=== PATIENT | male | born 1960 | race Caucasian/White ===

== ENCOUNTER 2017-11-07 08:47 | Observation (INO) | payer SELFPAY ==
[2017-11-07] MEDS ORDERED: Diltiazem 25 MG/5 ML SDV IVPUSH ONE ×2 (08:59→09:39)
[2017-11-07] MEDS ORDERED: Sodium Chloride 0.9% 1,000 ML IV SCH ×2 (09:00→13:37)
--- NOTE | 2017-11-07 09:22 | EDM.PDOC ---
ED HPI GENERAL MEDICAL PROBLEM - General Chief Complaint: Cardiovascular Problem Stated Complaint: IRREGULAR HEARTBEAT Time Seen by Provider: 11/07/17 09:00 Source of Information: Reports: Patient History Limitations: Reports: No Limitations - History of Present Illness INITIAL COMMENTS - FREE TEXT/NARRATIVE: 57-year-old male, otherwise healthy finish his 3 mile run this morning, had some breakfast and then suddenly developed palpitations. No chest pain or shortness of breath, but it was persistent so he came into the clinic to be checked. They found him to be in atrial fibrillation so sent him to the emergency room. He has no history of this in the past, no recent illnesses, he has not had a physical in 7 years but his only persistent medical problem is a small amount of postnasal drip. Onset: Sudden Duration: Hour(s): (Within the last 2 hours) Associated Symptoms: Reports: No Other Symptoms - Related Data Allergies Allergy/AdvReac Type Severity Reaction Status Date / Time No Known Allergies Allergy Verified 11/07/17 08:53 Home Meds: Home Meds Aspirin [Halfprin] 81 mg PO DAILY 11/07/17 [History] Fluticasone Propionate [Flonase] 2 spray INH ASDIRECTED 11/07/17 [History] Past Medical History Musculoskeletal History: Reports: Fracture - Past Surgical History Other Musculoskeletal Surgeries/Procedures:: knee surgery Social & Family History - Tobacco Use Smoking Status *Q: Unknown Ever Smoked - Caffeine Use Caffeine Use: Reports: None - Recreational Drug Use Recreational Drug Use: No ED ROS GENERAL - Review of Systems Review Of Systems: See Below Constitutional: Denies: Fever, Chills HEENT: Reports: Rhinitis Respiratory: Denies: Shortness of Breath Cardiovascular: Reports: Dyspnea on Exertion, Palpitations. Denies: Chest Pain GI/Abdominal: Reports: No Symptoms : Reports: No Symptoms Skin: Reports: No Symptoms Neurological: Denies: Dizziness, Headache Psychiatric: Reports: No Symptoms ED EXAM, GENERAL - Physical Exam Exam: See Below Exam Limited By: No Limitations General Appearance: Alert, No Apparent Distress Head: Atraumatic Respiratory/Chest: No Respiratory Distress, Lungs Clear Cardiovascular: No Murmur, Tachycardia, Irregularly Irregular GI/Abdominal: Soft, Non-Tender Extremities: Normal Inspection. No: Pedal Edema Neurological: Alert, Oriented Psychiatric: Normal Affect, Normal Mood Course - Vital Signs Last Recorded V/S: Last Vital Signs Temp 99.0 F 11/07/17 14:00 Pulse 79 11/07/17 14:00 Resp 15 11/07/17 14:00 BP 123/84 11/07/17 14:00 Pulse Ox 96 11/07/17 14:00 - Orders/Labs/Meds Orders: Active Orders 24 hr Category Date Time Status Diltiazem 125 mg Med 11/07/17 12:00 Active Dextrose 5% in Water 100 ml IV TITRATE EKG 12 Lead [EK] Routine Ther 11/07/17 08:59 Stop Req Medication Orders Acetaminophen (Tylenol) 650 mg PO Q4H PRN PRN Reason: Pain (Mild 1-3)/fever Aspirin (Halfprin) 81 mg PO DAILY GONZALO Fluticasone Propionate (Flonase) 0 gm NASBOTH DAILY GONZALO Diltiazem HCl 125 mg/ Dextrose (/Water) 125 mls @ 5 mls/hr IV TITRATE GONZALO; Protocol Last Admin: 11/07/17 12:10 Dose: 5 mg/hr, 5 mls/hr Sodium Chloride (Normal Saline) 1,000 mls @ 25 mls/hr IV ASDIRECTED GONZALO Ondansetron HCl (Zofran Odt) 4 mg PO Q6H PRN PRN Reason: Nausea able to take PO Labs: Laboratory Tests 11/07/17 11/07/17 Range/Units 08:59 09:06 WBC 8.8 (4.5-11.0) K/uL RBC 5.10 (4.30-5.90) M/uL Hgb 16.1 H (12.0-15.0) g/dL Hct 45.6 (40.0-54.0) % MCV 89 (80-98) fL MCH 32 H (27-31) pg MCHC 35 (32-36) % Plt Count 223 (150-400) K/uL Neut % (Auto) 57 (36-66) % Lymph % (Auto) 31 (24-44) % [place] % (Auto) 9 H (2-6) % Eos % (Auto) 2 (2-4) % Baso % (Auto) 1 (0-1) % Sodium 138 L (140-148) mmol/L Potassium 4.2 (3.6-5.2) mmol/L Chloride 102 (100-108) mmol/L Carbon Dioxide 27 (21-32) mmol/L Anion Gap 13.2 (5.0-14.0) mmol/L BUN 29 H (7-18) mg/dL Creatinine 1.4 H (0.8-1.3) mg/dL Est Cr Clr Drug Dosing 56.32 mL/min Estimated GFR (MDRD) 52 L (>60) Glucose 95 (74-106) mg/dL Calcium 9.5 (8.5-10.1) mg/dL Troponin I < 0.017 (0.000-0.056) ng/mL TSH, Ultra Sensitive 2.170 (0.358-3.740) uIU/mL Meds: Medications Generic Name Dose Route Start Last Admin Trade Name Freq PRN Reason Stop Dose Admin Acetaminophen 650 mg 11/07/17 13:37 Tylenol PO Q4H PRN Pain (Mild 1-3)/fever Aspirin 81 mg 11/08/17 09:00 Halfprin PO DAILY GONZALO Fluticasone Propionate 0 gm 11/08/17 09:00 Flonase NASBOTH DAILY GONZALO Diltiazem HCl 125 mg/ Dextrose 125 mls @ 5 mls/hr 11/07/17 12:00 11/07/17 12: 10 /Water IV 5 mg/hr TITRATE GONZALO 5 mls/hr Administration Protocol 5 MG/HR Sodium Chloride 1,000 mls @ 25 mls/hr 11/07/17 13:37 Normal Saline IV ASDIRECTED GONZALO Ondansetron HCl 4 mg 11/07/17 13:37 Zofran Odt PO Q6H PRN Nausea able to take PO Discontinued Medications Generic Name Dose Route Start Last Admin Trade Name Freq PRN Reason Stop Dose Admin Diltiazem HCl 20 mg 11/07/17 08:59 11/07/17 09:03 Diltiazem IVPUSH 11/07/17 09:00 20 mg ONETIME ONE Administration Diltiazem HCl 25 mg 11/07/17 09:34 11/07/17 09:41 Diltiazem IVPUSH 11/07/17 09:35 Not Given ONETIME ONE Diltiazem HCl 20 mg 11/07/17 09:39 11/07/17 09:41 Diltiazem IVPUSH 11/07/17 09:40 20 mg ONETIME ONE Administration Sodium Chloride 1,000 mls @ 250 mls/hr 11/07/17 09:00 11/07/17 09:03 Normal Saline IV 250 mls/hr ASDIRECTED GONZALO Administration Nicardipine HCl 25 mg/ Sodium 250 mls @ 50 mls/hr 11/07/17 11:00 11/07/17 11: 00 Chloride IV 5 mg/hr TITRATE GONZALO 50 mls/hr Administration Protocol 5 MG/HR Propofol 120 mg 11/07/17 10:01 11/07/17 11:00 Diprivan 20 Ml IVPUSH 11/07/17 10:02 120 mg ONETIME ONE Administration - Re-Assessments/Exams Free Text/Narrative Re-Assessment/Exam: 11/07/17 09:21 EKG was reviewed from clinic and does show atrial fibrillation. Rate was 120- 140 on the nursing manager, all other vitals were normal. Labs are drawn for a BMP, CBC, troponin and TSH. He was given 20 mg of IV Cardizem. 11/07/17 10:43 Patient's rate was controlled extremely well with the Cardizem but he did not convert. A second dose of 20 mg of IV Cardizem was given after 30 minutes, and another monitoring of 30 minutes was done. After consent and discussing risks, patient was cardioverted under propofol sedation twice, both times he converted to sinus rhythm briefly but then reentered into atrial fibrillation. His labs were very reassuring including a normal TSH, negative troponin and normal electrolytes. He did show volume contraction with an elevated hemoglobin, slightly decreased GFR and increased BUN and creatinine so hydration was continued. I discussed his condition with Dr. Alvarado who assisted with the cardioversion, and he'll be admitted for rate control and further evaluation. Departure - Departure Time of Disposition: 13:33 Disposition: Admitted As Inpatient 66 Condition: Fair Clinical Impression: Atrial fibrillation with rapid ventricular response - My Orders Last 24 Hours: My Active Orders 11/07/17 08:59 EKG 12 Lead [EK] Routine 11/07/17 12:00 Diltiazem 125 mg Dextrose 5% in Water 100 ml IV TITRATE - Assessment/Plan Last 24 Hours: My Active Orders 11/07/17 08:59 EKG 12 Lead [EK] Routine 11/07/17 12:00 Diltiazem 125 mg Dextrose 5% in Water 100 ml IV TITRATE
[2017-11-07] MEDS: Diltiazem 25 MG/5 ML SDV IVPUSH ONE ×2 (09:40→09:41)
[2017-11-07] MEDS ORDERED: Propofol 200 MG/20 ML SDV IVPUSH ONE (10:01)
[2017-11-07] MEDS ORDERED: niCARdipine HCl 25 MG in Sodium Chloride 0.9% 240 ML IV SCH (11:00)
--- NOTE | 2017-11-07 12:10 | PCM.PRNOTE ---
- Free Text/Narrative Note: Date of service: 11/07/2017 Proposed procedure: synchronized cardioversion Preprocedure diagnosis: paroxysmal atrial fibrillation with rapid ventricular response Post procedure diagnosis: paroxysmal atrial fibrillation with rapid ventricular response Indication for procedure: Brant was evaluated today for management atrial fibrillation/atrial flutter with symptoms and/or rapid ventricular response. Synchronized cardioversion was recommended as a primary treatment. Description of the procedure: Brant is currently located in [place] [id number]. We have reviewed the potential risks of electrical cardioversion including but not limited to: Superficial skin torres, ineffective treatment, other arrhythmias, reaction to anesthesia medications or potentially asystole. The benefits of the procedure have also been reviewed. At this time the patient wishes to proceed with electrical cardioversion. All necessary pre-procedure information and paperwork has been provided and completed, respectively. The patient was connected to cardioversion pads and monitoring equipment per protocol. Prior to the procedure, a timeout was held with nursing and anesthesia present to confirm the right patient and right procedure. Once appropriate anesthesia was applied the machine was charged to 200 Joules and a synchronized electrical shock was applied. The patient was successfully converted to normal sinus rhythm based on telemetry monitoring but unfortunately remained here for only a few seconds. A small amount of additional anesthesia was applied and we charged the machine to 250 J. He received a second synchronized shock and did not convert to normal sinus rhythm. They will remain in their current location until anesthesia has dissipated and the patient is more awake and alert. The patient will be admitted to the intensive care unit for medical management of paroxysmal atrial fibrillation. There were no immediate complications noted from the procedure. Willard Alvarado M.D.
--- NOTE | 2017-11-07 12:18 | PCM.HP ---
H&P History of Present Illness - General Date of Service: 11/07/17 Admit Problem/Dx: Admission Diagnosis/Problem Admission Diagnosis/Problem Paroxysmal atrial fibrillation with rapid ventricular response Source of Information: Patient, Provider History Limitations: Reports: No Limitations - History of Present Illness Initial Comments - Free Text/Narative: Brant presented to the emergency room with palpitations and noticed an irregular pulse when he checked his radial pulse. Upon arrival to the emergency room he was noted to be in atrial fibrillation with a rapid ventricular response. His heart rate did slow down with diltiazem boluses. We did attempt cardioversion twice but unfortunately he returned to atrial fibrillation quickly. He reports that he woke up feeling normal. He went for a 3 mile run and did not have any shortness of breath or chest pain. He has not had recent difficulties with either of these symptoms. He has not had any recent fevers or illnesses. No recent vomiting or diarrhea. He reports in general he has felt well. He drinks a can of pop every 2-3 days. He does not drink any coffee. He rarely uses alcohol. He does report some somnolence in the morning but does not have excessive daytime somnolence and has never been told that he quits breathing or snores. Workup in the emergency room revealed mild dehydration following his run this morning but electrolytes were normal. Troponin was normal as was his TSH. Because of the lack of response to the diltiazem he will be admitted for additional management and workup. - Related Data Allergies/Adverse Reactions: Allergies Allergy/AdvReac Type Severity Reaction Status Date / Time No Known Allergies Allergy Verified 11/07/17 08:53 Home Medications: Home Meds Aspirin [Halfprin] 81 mg PO DAILY 11/07/17 [History] Fluticasone Propionate [Flonase] 2 spray INH ASDIRECTED 11/07/17 [History] Past Medical History Musculoskeletal History: Reports: Fracture - Past Surgical History Other Musculoskeletal Surgeries/Procedures:: knee surgery Social & Family History - Family History Cardiac: Denies: Afib, CAD - Tobacco Use Smoking Status *Q: Unknown Ever Smoked - Caffeine Use Caffeine Use: Reports: None - Alcohol Use Alcohol Use History: No - Recreational Drug Use Recreational Drug Use: No H&P Review of Systems - Review of Systems: Review Of Systems: See Below Free Text/Narrative: A complete 12 point review of systems was obtained. Pertinent positives and negatives are noted in the history of present illness. All other systems were reviewed and were negative except as noted. Exam - Exam Exam: See Below - Vital Signs Vital Signs: Last Vital Signs Temp 36.6 C 11/07/17 08:54 Pulse 119 H 11/07/17 12:10 Resp 16 11/07/17 09:06 BP 113/78 11/07/17 12:10 Pulse Ox 97 11/07/17 09:06 Weight: 81.647 kg - Exam Quality Assessment: No: Supplemental Oxygen General: Alert, Oriented, Cooperative. No: Mild Distress HEENT: Conjunctiva Clear, Mucosa Moist & [place]. No: Scleral Icterus Neck: Supple, Trachea Midline. No: Lymphadenopathy, JVD Lungs: Clear to Auscultation, Normal Respiratory Effort Cardiovascular: Irregular Rhythm, Tachycardia. No: Systolic Murmur GI/Abdominal Exam: Normal Bowel Sounds, Soft, Non-Tender, No Distention Back Exam: Normal Inspection, Full Range of Motion Extremities: No Pedal Edema. No: Increased Warmth Peripheral Pulses: 2+: Dorsalis Pedis (L), Dorsalis Pedis (R) Skin: Warm, Dry Neuro Extensive - Mental Status: Alert, Oriented x3, Nl Response to Commands Neuro Extensive - Motor, Sensory, Reflexes: CN II-XII Intact. No: Dysarthria, Abnormal Motor, Tremor Psychiatric: Alert, Normal Affect - Patient Data Lab Results Last 24 hrs: Laboratory Results - last 24 hr 11/07/17 11/07/17 Range/Units 08:59 09:06 WBC 8.8 (4.5-11.0) K/uL RBC 5.10 (4.30-5.90) M/uL Hgb 16.1 H (12.0-15.0) g/dL Hct 45.6 (40.0-54.0) % MCV 89 (80-98) fL MCH 32 H (27-31) pg MCHC 35 (32-36) % Plt Count 223 (150-400) K/uL Neut % (Auto) 57 (36-66) % Lymph % (Auto) 31 (24-44) % [place] % (Auto) 9 H (2-6) % Eos % (Auto) 2 (2-4) % Baso % (Auto) 1 (0-1) % Sodium 138 L (140-148) mmol/L Potassium 4.2 (3.6-5.2) mmol/L Chloride 102 (100-108) mmol/L Carbon Dioxide 27 (21-32) mmol/L Anion Gap 13.2 (5.0-14.0) mmol/L BUN 29 H (7-18) mg/dL Creatinine 1.4 H (0.8-1.3) mg/dL Est Cr Clr Drug Dosing 56.32 mL/min Estimated GFR (MDRD) 52 L (>60) Glucose 95 (74-106) mg/dL Calcium 9.5 (8.5-10.1) mg/dL Troponin I < 0.017 (0.000-0.056) ng/mL TSH, Ultra Sensitive 2.170 (0.358-3.740) uIU/mL Result Diagrams: 11/07/17 08:59 11/07/17 09:06 EKG INTERPRETATION EKG Date: 11/07/17 Rhythm: A-Fib Rate (Beats/Min): 131 [place]: Normal P-Wave: Variable QRS: Normal ST-T: Normal QT: Normal Comparison: NA - No Prior EKG EKG Interpretation Comments: This EKG image was personally reviewed in the emergency room *Q Meaningful Use (ADM) - VTE Risk Assess *Q Each Risk Factor Represents 1 Point: Age 41 - 59 years, Obesity ( BMI > 25 kg/m2 ) Total Score 1 Point Risk Factors: 2 Each Risk Factor Represents 2 Points: None Total Score 2 Point Risk Factors: 0 Each Risk Factor Represents 3 Points: None Total Score 3 Point Risk Factors: 0 Each Risk Factor Represents 5 Points: None Total Score 5 Point Risk Factors: 0 Venous Thromboembolism Risk Factor Score *Q: 2 - Problem List (1) Atrial fibrillation with rapid ventricular response SNOMED Code(s): 084204763913084 ICD Code: I48.91 - UNSPECIFIED ATRIAL FIBRILLATION Status: Acute Current Visit: Yes Problem List Initiated/Reviewed/Updated: Yes Orders Last 24hrs: Active Orders 24 hr Category Date Time Status Patient Status Manage Transfer [TRANSFER] Routine ADT 11/07/17 12:11 Ordered EKG Documentation Completion [RC] ASDIRECTED Care 11/07/17 08:59 Active Diltiazem 125 mg Med 11/07/17 12:00 Active Dextrose 5% in Water 100 ml IV TITRATE Sodium Chloride 0.9% [Normal Saline] 1,000 ml Med 11/07/17 09:00 Active IV ASDIRECTED Resuscitation Status Routine Resus Stat 11/07/17 12:11 Ordered EKG 12 Lead [EK] Routine Ther 11/07/17 08:59 Ordered Medication Orders Sodium Chloride (Normal Saline) 1,000 mls @ 250 mls/hr IV ASDIRECTED GONZALO Last Admin: 11/07/17 09:03 Dose: 250 mls/hr Diltiazem HCl 125 mg/ Dextrose (/Water) 125 mls @ 5 mls/hr IV TITRATE GONZALO; Protocol Last Admin: 11/07/17 12:10 Dose: 5 mg/hr, 5 mls/hr Assessment/Plan Comment:: ASSESSMENT AND PLAN - Paroxysmal atrial fibrillation - this is his first episode. There is no identifiable trigger at this time. His rate did slow with diltiazem but he did remain in atrial fibrillation. 2 different rounds of synchronized cardioversion did not keep him in a sinus rhythm. He will be admitted for rate and hopefully rhythm control as well as additional workup. Electrolytes and thyroid studies are normal. His CHADSS-VASC score is 0. -Daily aspirin -Continue diltiazem infusion -Cardiac monitoring -Overnight pulse oximetry -Echo in the morning Maintenance issues - - DVT prophylaxis - mechanical - GI prophylaxis - not indicated - Nutrition - regular diet - Seymour catheter - not indicated CODE STATUS - full code Admission justification - patient will be referred observation status for additional rate and hopefully rhythm control as well as additional workup for his new atrial fibrillation. Disposition - I would anticipate discharge to home tomorrow Primary care physician - Dr Johnson and or Dr Azul Alvarado M.D.
[2017-11-07] MEDS ORDERED: Acetaminophen 325 MG Tab PO PRN (13:37)
[2017-11-07] MEDS ORDERED: Ondansetron 4 MG Tab.DIS PO PRN (13:37)
[2017-11-08] MEDS ORDERED: Fluticasone Propionate Nasal Spray 16 GM Bottle NASBOTH SCH (09:00)
[2017-11-08] MEDS ORDERED: Aspirin 81 MG Tab.EC PO SCH (09:00)
--- NOTE | 2017-11-08 09:20 | PCM.DCSUM1 ---
Discharge Summary - Hospital Course Brief History: Healthy 57-year-old male who presented with palpitations. Workup in the emergency room was remarkable for atrial fibrillation with rapid ventricular response. He was admitted for additional treatment after electrical cardioversion failed. - Discharge Data Discharge Date: 11/08/17 Discharge Disposition: Home, Self-Care 01 Condition: Good - Discharge Diagnosis/Problem(s) (1) Atrial fibrillation with rapid ventricular response SNOMED Code(s): 867718302423135 ICD Code: I48.91 - UNSPECIFIED ATRIAL FIBRILLATION Status: Acute Current Visit: Yes - Patient Summary/Data Hospital Course: Brant presented to the emergency room with palpitations and an irregular heart rate. Workup in the emergency room was suggestive of atrial fibrillation with a rapid ventricular response. Laboratory studies revealed very mild dehydration but electrolytes were normal. Troponin level was normal. His heart rate did slow down with diltiazem provided in the emergency room but he remained in atrial fibrillation. We did try 2 different rounds of synchronized cardioversion but he remained in atrial fibrillation. He was admitted to the intensive care unit and started on a diltiazem infusion. His heart responded well to the medication and slow down to the 60s and eventually converted to a normal sinus rhythm. The infusion was stopped at this point. He has remained in sinus rhythm since that time. He feels well this morning and I believe is safe for outpatient management. We did perform an echocardiogram which was completely normal. Electrolytes and thyroid studies are normal. The exact cause for the episode is not clear. He drinks very little caffeine. No symptoms of sleep apnea and we did not see any overnight hypoxia. Because he is a runner and reactive we have elected to not start a beta marc at this point. He does take a baby aspirin daily and that should be sufficient given his CHADSS-VASC score of 0/9. He will follow-up as needed if symptoms return. - Patient Instructions Diet: Regular Diet as Tolerated Activity: As Tolerated Driving: May Drive Today Showering/Bathing: May Shower Notify Provider of: Fever, Increased Pain, Nausea and/or Vomiting Other/Special Instructions: 1. You were in the hospital for evaluation and management of paroxysmal atrial fibrillation with a rapid ventricular response. Your heart has converted to a normal sinus rhythm utilizing a medication called diltiazem. This medication was stopped and your heart remained in a normal rhythm. Your workup including laboratory studies and an echocardiogram has been completely unremarkable and no cause for the episode has been found. Since this was your first episode and there are no risk factors I do not recommend that we start any medications at this time. You should continue to take your baby aspirin once daily to help reduce the risk of any blood clot formation. If you have recurrence of symptoms I would recommend seeking evaluation and we may need to start medications if you have additional episodes. 2. Seek medical attention if you develop fever greater than 101, sudden onset of shortness of breath, chest pain or if you have palpitations and an irregular pulse. - Discharge Plan *PRESCRIPTION DRUG MONITORING PROGRAM REVIEWED*: Not Applicable *COPY OF PRESCRIPTION DRUG MONITORING REPORT IN PATIENT SHANTI: Not Applicable Home Medications: Home Meds Aspirin [Halfprin] 81 mg PO DAILY 11/07/17 [History] Fluticasone Propionate [Flonase] 2 spray INH ASDIRECTED 11/07/17 [History] Patient Handouts: Atrial Fibrillation Referrals: PCP,None [Primary Care Provider] - (Follow-up as needed if symptoms return) - Discharge Summary/Plan Comment DC Time >30 min.: No - Patient Data Vitals - Most Recent: Last Vital Signs Temp 35.7 C 11/08/17 03:56 Pulse 55 L 11/08/17 06:00 Resp 15 11/08/17 06:00 BP 96/59 L 11/08/17 06:00 Pulse Ox 97 11/08/17 03:56 Weight - Most Recent: 81.647 kg I&O - Last 24 hours: Intake & Output 11/07/17 11/08/17 11/08/17 22:59 06:59 14:59 Intake Total 365 120 Output Total 500 200 Balance -135 -80 Lab Results - Last 24 hrs: Laboratory Results - last 24 hr 11/07/17 11/07/17 11/08/17 Range/Units 09:06 13:37 05:11 WBC 9.8 (4.5-11.0) K/uL RBC 4.70 (4.30-5.90) M/uL Hgb 14.5 (12.0-15.0) g/dL Hct 41.9 (40.0-54.0) % MCV 89 (80-98) fL MCH 31 (27-31) pg MCHC 35 (32-36) % Plt Count 219 (150-400) K/uL Sodium 138 L (140-148) mmol/L Potassium 4.2 (3.6-5.2) mmol/L Chloride 102 (100-108) mmol/L Carbon Dioxide 27 (21-32) mmol/L Anion Gap 13.2 (5.0-14.0) mmol/L BUN 29 H (7-18) mg/dL Creatinine 1.4 H (0.8-1.3) mg/dL Est Cr Clr Drug Dosing 56.32 mL/min Estimated GFR (MDRD) 52 L (>60) Glucose 95 (74-106) mg/dL Calcium 9.5 (8.5-10.1) mg/dL Magnesium 2.0 (1.8-2.4) mg/dL Troponin I < 0.017 (0.000-0.056) ng/mL TSH, Ultra Sensitive 2.170 (0.358-3.740) uIU/mL 11/08/17 Range/Units 05:11 WBC (4.5-11.0) K/uL RBC (4.30-5.90) M/uL Hgb (12.0-15.0) g/dL Hct (40.0-54.0) % MCV (80-98) fL MCH (27-31) pg MCHC (32-36) % Plt Count (150-400) K/uL Sodium 138 L (140-148) mmol/L Potassium 3.9 (3.6-5.2) mmol/L Chloride 105 (100-108) mmol/L Carbon Dioxide 23 (21-32) mmol/L Anion Gap 13.9 (5.0-14.0) mmol/L BUN 20 H (7-18) mg/dL Creatinine 1.2 (0.8-1.3) mg/dL Est Cr Clr Drug Dosing 65.71 mL/min Estimated GFR (MDRD) > 60 (>60) Glucose 99 (74-106) mg/dL Calcium 8.7 (8.5-10.1) mg/dL Magnesium (1.8-2.4) mg/dL Troponin I (0.000-0.056) ng/mL TSH, Ultra Sensitive (0.358-3.740) uIU/mL Med Orders - Current: Current Medications Acetaminophen (Tylenol) 650 mg PO Q4H PRN PRN Reason: Pain (Mild 1-3)/fever Aspirin (Halfprin) 81 mg PO DAILY GONZALO Last Admin: 11/08/17 09:11 Dose: 81 mg Fluticasone Propionate (Flonase) 0 gm NASBOTH DAILY GONZALO Ondansetron HCl (Zofran Odt) 4 mg PO Q6H PRN PRN Reason: Nausea able to take PO Discontinued Medications Diltiazem HCl (Diltiazem) 20 mg IVPUSH ONETIME ONE Stop: 11/07/17 09:00 Last Admin: 11/07/17 09:03 Dose: 20 mg Diltiazem HCl (Diltiazem) 25 mg IVPUSH ONETIME ONE Stop: 11/07/17 09:35 Last Admin: 11/07/17 09:41 Dose: Not Given Diltiazem HCl (Diltiazem) 20 mg IVPUSH ONETIME ONE Stop: 11/07/17 09:40 Last Admin: 11/07/17 09:41 Dose: 20 mg Sodium Chloride (Normal Saline) 1,000 mls @ 250 mls/hr IV ASDIRECTED GONZALO Last Admin: 11/07/17 09:03 Dose: 250 mls/hr Nicardipine HCl 25 mg/ Sodium (Chloride) 250 mls @ 50 mls/hr IV TITRATE GONZALO; Protocol Last Admin: 11/07/17 11:00 Dose: 5 mg/hr, 50 mls/hr Diltiazem HCl 125 mg/ Dextrose (/Water) 125 mls @ 5 mls/hr IV TITRATE GONZALO; Protocol Last Titration: 11/07/17 22:32 Dose: 2.5 mg/hr, 2.5 mls/hr Sodium Chloride (Normal Saline) 1,000 mls @ 25 mls/hr IV ASDIRECTED GONZALO Propofol (Diprivan 20 Ml) 120 mg IVPUSH ONETIME ONE Stop: 11/07/17 10:02 Last Admin: 11/07/17 11:00 Dose: 120 mg - Exam Quality Assessment: Denies: Supplemental Oxygen General: Reports: Alert, Oriented, Cooperative, No Acute Distress Lungs: Reports: Normal Respiratory Effort Cardiovascular: Reports: Regular Rate, Regular Rhythm Extremities: No Pedal Edema Psy/Mental Status: Reports: Alert, Normal Affect
== END 2017-11-08 09:30 | disposition home or self-care (01) ==
LOC: JP.ED 08:47 → JP.ICU 12:11
PROVIDERS: ADMIT Internal Medicine; ATTEND Internal Medicine
DX: I48.0 Paroxysmal atrial fibrillation (principal); Z79.82 Long term (current) use of aspirin
CPT/HCPCS: 36415; 80048; 83735; 84443; 84484; 85025; 85027; 92960; 93005; 93306; 96361; 96365; 96375; 96376; 99285; 99285-25; A9270-GY; J2704; J3490; J7030; J7050; J7060